=== PATIENT | male | born 1965 | race Caucasian/White ===

== ENCOUNTER 2018-03-14 13:31 | Inpatient (IN) | payer OTHER ==
[~2018-03-14] VITALS: Ht 185.4 cm; Wt 96.2 kg
[2018-03-14 13:37] VITALS: BP 147/75
[2018-03-14 13:52] LABS: ABSOLUTE EOSINOPHILS 0.1 thou/uL (0.0-0.7); ABSOLUTE LYMPHOCYTES 1.6 thou/uL (0.8-5.3); ABSOLUTE MONOCYTES 0.4 thou/uL (0.0-1.2); ABSOLUTE NEUTROPHILS 5.6 thou/uL (1.6-8.1); BASOPHILS 0.6 %; HEMATOCRIT 45.7 % (42.0-52.0); HEMOGLOBIN 15.4 gm/dL (14.0-18.0); LYMPHOCYTES 21.2 %; MCH 29.8 pg (26.0-34.0); MCHC 33.7 g/dL (28.0-37.0); MCV 88.2 fL (80.0-100.0); MONOCYTES 5.4 %; MPV 8.1 fl. (7.2-11.1); NUCLEATED RBCS 0 /100WBC; PLATELET COUNT* 308 thou/uL (150-400); POLYS 71.8 %; RBC 5.18 mil/uL (4.50-6.00); RDW-CV 13.9 % (10.5-14.5); WBC 7.8 thou/uL (4.0-11.0)
[2018-03-14 14:01] LABS: ANION GAP 13 mmol/L (7-16); BUN 16 mg/dL (7-18); CALCIUM 9.8 mg/dL (8.5-10.1); CHLORIDE 101 mmol/L (98-107); CO2 23 mmol/L (21-32); CREATININE 1.4 mg/dL (0.6-1.3); GLUCOSE 121 mg/dL (70-99); POTASSIUM 4.4 mmol/L (3.5-5.1); SODIUM 137 mmol/L (136-145)
[2018-03-14 14:02] LABS: APTT 24.7 Seconds (25.0-31.3); PROTIME 10.5 Seconds (9.20-11.50)
[2018-03-14 14:16] LABS: ALBUMIN 4.3 g/dL (3.4-5.0); ALKALINE PHOSPHATASE 67 U/L (46-116); SGOT 13 U/L (15-37); SGPT 23 U/L (30-65); TOTAL BILIRUBIN 0.7 mg/dL (<0.1-1.0); TOTAL PROTEIN 7.6 g/dL (6.4-8.2); TROPONIN-I LEVEL <0.06 ng/mL (<0.06)
[2018-03-14 15:42] VITALS: BP 120/60
[2018-03-14 16:14] VITALS: BP 120/73
--- NOTE | 2018-03-14 17:38 | NUR ---
PT ARRIVED TO THE FLOOR AT 1448. PT WENT TO MRI ABOUT 15 MIN AFTER ARRIVING TO THE UNIT. WHEN THE PT RETURNED RETURNED TO THE FLOOR FROM MRI HE STATED THAT HE WAS GOING TO LEAVE AND HE WOULD NOT BE STAYING THE NIGHT. THIS NURSE CONTACTED DR KULKARNI AND HE CAME TO SPEAK TO THE PT. PT WOULD NOT TO AGREE TO STAY AND DR KULKARNI SAID TO DISCHARGE AMA. PT IV AND MONITOR REMOVED AND PT TOOK ALL PERSONAL BELONGINGS. AMA PAPERWORK SINGED AND PLACED IN THE CHART.
--- NOTE | 2018-03-14 18:13 | EKG ---
[place] [address] ELECTROCARDIOGRAM REPORT Name: JOSE DANIEL DOBSON Room: [address] IN [place]..#: [id number] Admission: 03/14/18 Attend Phys: Justin Baxter MD Discharge: 03/14/18 Date of : 67 Report #: [id number] THIS REPORT FOR: //name// [facility] ED Test Date: 2018-03-14 Test Time: 13:31:28 Pat Name: JOSE DANIEL DOBSON Department: Room: [facility] Gender: Validation Consultant: Elaine HUNTER : 1965 Requested By: Tony Manuel Order Number: [id number] MD: Hermes Dye Measurements Intervals [place] Rate: 54 P: 69 MS: 152 QRS: 42 QRSD: 104 T: 35 QT: 445 QTc: 422 Interpretive Statements Sinus rhythm No previous ECG available for comparison Electronically Signed On 03-14-2018 18:13:14 CDT by Hermes Dye [email or web address] <ELECTRONICALLY SIGNED> By: Hermes Dye MD, [facility] 03/14/18 1813 1331 30 Hermes Dye MD, FACC /EPI
[2018-03-15 02:09] LABS: GLYCOHEMOGLOBIN (HGB A1C) 5.7 % (4.8-5.6)
--- NOTE | 2018-03-15 08:27 | NUR ---
RECEIVED PT ORDERS FOR EVALUATION AND TREATMENT ON 03/14/18. PT LEFT HOSPITAL AMA PRIOR TO COMPLETION OF PT EVALUATION.
--- NOTE | 2018-03-15 09:43 | NUR ---
PT. DISCHARGED AMA PRIOR TO O.T. EVAL. PLEASE ORDER FURTHER O.T. SERVICES IF NEEDED.
== END 2018-03-14 17:40 | disposition left against medical advice (07) | DRG 149 ==
LOC: M.ERS 13:31 → M.TBA-ER 15:05 → M.2W 15:51
PROVIDERS: Emergency Medicine Emergency Medical Services; ADMIT Internal Medicine
DX: H81.10 Benign paroxysmal vertigo, unspecified ear (principal); Z82.49 Family history of ischemic heart disease and other diseases of the circulatory system; Z53.21 Procedure and treatment not carried out due to patient leaving prior to being seen by health care provider; F41.9 Anxiety disorder, unspecified; Z79.899 Other long term (current) drug therapy